=== PATIENT | female | born 1980 | race Caucasian/White ===

== ENCOUNTER → 2016-06-14 | Outpatient (CLI) | payer BC ==
[2016-06-14 10:56] LABS: CH 30.1; CHCM 33.1; HCT 44.5 % (34.0-46.0); HDW 2.32; HGB 15.2 gm/dL (11.4-16.0); MCH 31.2 pg (25.0-35.0); MCHC 34.3 g/dL (31.0-37.0); MCV 91.1 fL (80.0-100.0); Mean Platelet Volume 7.3; RBC 4.88 m/uL (3.80-5.40); RDW 12.5 % (11.5-15.5); WBC 5.7 k/uL (3.8-10.6)
[2016-06-14 11:29] LABS: ALT 33 U/L (9-52); AST 18 U/L (14-36); Alkaline Phosphatase 74 U/L (38-126); Anion Gap 13 mmol/L; Blood Urea Nitrogen 11 mg/dL (7-17); Calcium 9.8 mg/dL (8.4-10.2); Carbon Dioxide 26 mmol/L (22-30); Chloride 106 mmol/L (98-107); Glucose 96 mg/dL (74-99); Non-African American GFR(MDRD) >60 (>60 ml/min/1.73 sqM); Potassium 4.3 mmol/L (3.5-5.1); Sodium 145 mmol/L (137-145); Total Bilirubin 0.4 mg/dL (0.2-1.3); Total Protein 7.6 g/dL (6.3-8.2)
[2016-06-14 11:36] LABS: Follicle Stimulating Hormone 4.8 mIU/mL; Prolactin 8.6 ng/mL (3.0-18.6)
[2016-06-14 12:09] LABS: Vitamin B12 722 pg/mL (239-931)
== END | disposition home or self-care (01) ==
LOC: LABWHC1 10:09
PROVIDERS: ATTEND Internal Medicine Endocrinology, Diabetes & Metabolism
DX: E06.3 Autoimmune thyroiditis (principal); R53.83 Other fatigue
CPT/HCPCS: 36415; 80053; 82533; 82607; 83001; 84146; 84439; 84443; 84480; 85027

== ENCOUNTER → 2016-07-26 | Outpatient (CLI) | payer BC ==
--- NOTE | 2016-07-26 17:36 | WWHP ---
DATE OF SERVICE: 07/26/2016 CHIEF COMPLAINT: Patient is here for her routine gynecologic exam. HPI: This is a 36-year-old G1, P1 with an LMP of 07/10/2016. Her is status post vasectomy. She is without gynecologic complaints. Her periods are generally regular every month. She states about every 6 months her periods can shift by a few days. PAST MEDICAL HISTORY: Unremarkable. MEDICATIONS: 1. Omeprazole 20 mg p.r.n. 2. Motrin jpln-uwh-lmdoisr p.r.n. for menstrual cramps. ALLERGIES TO SULFA WHICH CAUSED TACHYCARDIA. PAST SURGICAL HISTORY: Laparoscopic appendectomy 2015, wisdom teeth removed in the past. Laparoscopic cholecystectomy in 2016. Past OB history: One vaginal delivery by myself in 2006. Past INFORMATICIST history: She was told she had endometriosis at the time of her laparoscopic appendectomy. She states she does have some cramping about 2 days per period. This is usually relieved with jpjb-krs-mxcojga Motrin. She has no history of STDs. SOCIAL HISTORY: She denies tobacco and drug use and has about 2 to 3 alcoholic drinks per month. She has been since 2001. 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 FAMILY HISTORY: Mother and grandmother have heart disease. She also has a grandmother with diabetes. She denies family history of cancer. REVIEW OF SYSTEMS: She has lost about 10 pounds at the time of her cholecystectomy. She denies respiratory, cardiac, or GI problems. PHYSICAL EXAM: Blood pressure 111/79. Height 5 feet 7 inches. Weight 156 pounds. Temperature 97.6, pulse 75. This a well-developed, well-nourished white female who is alert and oriented x3 in no acute distress. HEENT is within normal limits. NECK: Supple without mass or thyromegaly. CHEST AND LUNGS: Clear to auscultation. HEART: Regular rate and rhythm. Breasts are without mass or tenderness. There is a slight linear nipple inversion of the left nipple. She states this has been this way throughout her life. Axillary exam is negative for adenopathy. BACK: Negative for CVA tenderness. ABDOMEN: There are 3 right upper quadrant and one periumbilical small laparoscopic incisions that are intact. There is mild ecchymosis noted. Steri-Strips are still in place and she declined having these removed by me. These were from her cholecystectomy 2 weeks ago. ABDOMEN: Soft and nontender and nondistended. There are no palpable masses. PELVIC EXAM: Normal external genitalia. Cervix and is multiparous and slightly friable upon doing the Pap smear. Vagina appears normal and there is no evidence of prolapse. There is no cervical motion tenderness. The uterus is slightly retroverted, nongravid size and nontender. There are no palpable adnexal masses or tenderness. Rectal exam is negative for mass or tenderness. EXTREMITIES: Nontender. IMPRESSION: A 36-year-old female gynecologically healthy female whose is status post vasectomy. PLAN: 1. Pap smear was performed. 2. Self-breast examination was discussed. 3. Mammograms will be deferred until age 40. 4. Osteoporosis prevention was discussed. 5. She will return in one year.
--- NOTE | 2016-08-09 12:29 | WWPLE ---
August 09, 2016 RE: Carey Deluna Maxim Dear Dr. Ceballos; I had the pleasure of seeing your patient Carey Deluna in the office on 07/26/2016. As you know, she is a 36-year-old female who presented for her routine gynecologic exam. Her gynecologic exam was unremarkable. Her Pap smear came back slightly abnormal showing ASCUS. Reflex high risk HPV testing was negative. With this combination of test results, nothing further is needed at this time; however, I would recommend that she have her Pap smear repeated in one year. She states she will be seeing me for this. Thank you for allowing me to participate in the care of your patient. Please do not hesitate to call if you have any questions. Sincerely, Shelli Navarro. SARINA
== END ==
LOC: WWCWWP 07:57
PROVIDERS: ATTEND Obstetrics & Gynecology

== ENCOUNTER → 2017-08-29 | Outpatient (CLI) | payer BC ==
[2017-08-29 11:36] VITALS: BP 116/79; PULSE 94; TEMP 97.6; BMI 26.1
--- NOTE | 2017-08-29 12:16 | P.HPOB ---
History of Present Illness H&P Date: 08/29/17 Chief Complaint: Patient is here for routine gynecologic exam. This is a 37-year-old with an LMP of 08/08/2017. Her 's status post vasectomy. She states her menses are regular every month. They typically last 5 to 7 days. She states that an the 3rd and 4th day she has heavier flow with clots and significant cramping. The clots can be about 1 inch in size. She has to change your protection about every 1 hour during the heady days. She is interested in trying something non-hormonal and nonsurgical for this. Review of Systems She has gained about 6 pounds over the last year. She denies respiratory, cardiac, or G.I. problems. Past Medical History Past Medical History: No Reported History Additional Past Medical History / Comment(s): Endometriosis History of Any Multi-Drug Resistant Organisms: None Reported Past Surgical History: Appendectomy Additional Past Surgical History / Comment(s): wisdom teeth x4, laparoscopic cholecystectomy with endometriosis noted in 2016 and laparoscopic appendectomy 2015. Past Anesthesia/Blood Transfusion Reactions: Family Hisory of Malignant Hyperthermia, Motion Sickness Past Psychological History: No Psychological Hx Reported Smoking Status: Never smoker Past Alcohol Use History: Occasional Past Drug Use History: None Reported - Past Family History Mother Family Medical History: No Reported History Medications and Allergies Home Medications Medication Instructions Recorded Confirmed Type Ferrous Sulfate [Feosol] 325 mg PO DAILY PRN 04/14/16 04/20/16 History Famotidine [Pepcid] 20 mg PO DAILY PRN 04/19/16 04/20/16 History Allergies Allergy/AdvReac Type Severity Reaction Status Date / Time Sulfa (Sulfonamide AdvReac Rapid Verified 04/20/16 11:51 Antibiotics) Heart Rate Exam - Vital Signs Vital signs: Vital Signs Temp Pulse BP 08/29/17 11:27 97.6 F 94 116/79 Intake and Output 08/28/17 08/29/17 08/29/17 22:59 06:59 14:59 Other: Weight 73.482 kg Height 5'6" BMI 26. This is a well-developed well-nourished white female who is alert and oriented times 3 in no acute distress. HEENT: Within normal limits. NECK: Supple without mass or thyromegaly. CHEST AND LUNGS: Clear to auscultation. HEART: Regular rate and rhythm. BREASTS: Are without mass or discharge. AXILLARY EXAM: Negative for adenopathy. BACK: Negative for CVA tenderness. ABDOMEN: Soft, nontender, without palpable masses. PELVIC EXAM: Normal external genitalia. Cervix and vagina appear normal. There is no unusual discharge. There is no evidence of prolapse. The uterus is midposition, nongravid size and nontender. There are no palpable adnexal masses or tenderness. RECTAL EXAM: negative for mass or tenderness and is negative for occult blood. EXTREMITIES: Nontender. IMPRESSION: 1. This is a 37 year old female with normal gynecologic exam whose status post vasectomy. 2. Mild dysmenorrhea and hypermenorrhea on days 3 and 4 of her menses. There are no significant physical findings at this time. 3. History of endometriosis found on laparoscopic cholecystectomy in 2017. 4. History of ASCUS Pap smear with negative high risk HPV on 07/26/2016. PLAN: 1. Pap smear was deferred. With the 07/26/2016 results, we will plan on repeating the Pap smear with HPV testing in one to 2 years. 2. Self breast examination was discussed. 3. Trial of meclofenamate sodium 100 mg TID PRN for heavy menstrual flow or menstrual pain up to 6 days per cycle. Any prescription will be sent to [facility] on . She will return in one year and PRN.
== END | disposition home or self-care (01) ==
LOC: WWCWWP 11:24
PROVIDERS: ATTEND Obstetrics & Gynecology
DX: Z53.9 Procedure and treatment not carried out, unspecified reason (principal)

== ENCOUNTER → 2019-01-15 | Outpatient (CLI) | payer BC ==
[2019-01-15 16:09] VITALS: BP 121/82; PULSE 84; RESP 16; TEMP 98.7; BMI 28.4
--- NOTE | 2019-01-15 16:50 | P.HPOB ---
History of Present Illness H&P Date: 01/15/19 Chief Complaint: The patient is here for her routine gynecologic exam. This is a 38-year-old with an LMP of 12/21/2018. The patient continues to use ghfh-gkt-lrlhwht ibuprofen 400 mg Q day PRN for menstrual cramps. She typically uses this about 2 days per cycle. The 1st day of her cycle can also be heavier flow. She did try meclofenamate last year, but noticed the same results with vmwg-mlo-vwzubov ibuprofen so she discontinued the meclofenamate. She states her menstrual periods are controlled with strk-jmf-bufszvi Motrin. She is otherwise without complaints. Her is status post vasectomy. Review of Systems The patient has gained 13 pounds over the last year. She denies respiratory, cardiac, or G.I. problems. 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 Hx Endometriosis. History of Any Multi-Drug Resistant Organisms: None Reported Past Surgical History: Appendectomy Additional Past Surgical History / Comment(s): wisdom teeth x4, laparoscopic cholecystectomy with endometriosis noted in 2016 and laparoscopic appendectomy 2015. Past Anesthesia/Blood Transfusion Reactions: Family Hisory of Malignant Hyperthermia, Motion Sickness Past Psychological History: No Psychological Hx Reported Smoking Status: Never smoker Past Alcohol Use History: Occasional (5 per month) Past Drug Use History: None Reported Additional History: She has been since 2001. She works at [employer] in the [employer] department. She enjoys camping. - Past Family History Mother Family Medical History: No Reported History Medications and Allergies Home Medications Medication Instructions Recorded Confirmed Type Famotidine [Pepcid] 20 mg PO DAILY PRN 04/19/16 01/15/19 History Ibuprofen [Motrin] 400 mg PO DAILY PRN 01/15/19 01/15/19 History Allergies Allergy/AdvReac Type Severity Reaction Status Date / Time Sulfa (Sulfonamide AdvReac Rapid Verified 01/15/19 16:12 Antibiotics) Heart Rate Exam Vital Signs Temp Pulse Resp BP Pulse Ox 01/15/19 16:02 98.7 F 84 16 121/82 98 Intake and Output 01/15/19 01/15/19 01/15/19 06:59 14:59 22:59 Other: Weight 79.832 kg Height 5'6", weight 176 pounds, BMI 28.4. This is a well-developed well-nourished white female who is alert and oriented times 3 in no acute distress. HEENT: Within normal limits. NECK: Supple without mass or thyromegaly. CHEST AND LUNGS: Clear to auscultation. HEART: Regular rate and rhythm. BREASTS: Are without mass or discharge. AXILLARY EXAM: Negative for adenopathy. BACK: Negative for CVA tenderness. ABDOMEN: Soft, nontender, without palpable masses. PELVIC EXAM: Normal external genitalia. Cervix and vagina appear normal. There is no unusual discharge. There is no evidence of prolapse. The uterus is midposition, nongravid size and nontender. There are no palpable adnexal masses or tenderness. RECTAL EXAM: negative for mass or tenderness. EXTREMITIES: Nontender. IMPRESSION: 1. 38-year-old female whose is status post vasectomy, with normal gynecologic exam. 2. Mild dysmenorrhea controlled with djsl-edv-rekhzfc ibuprofen 400mg daily PRN. 3. History of endometriosis with fairly minimal symptoms. 4. Previous ascus Pap smear with negative high-risk HPV testing on 07/26/2016. PLAN: 1. Pap smear co-test was performed. 2. Self breast awareness was discussed with the patient. 3. Osteoporosis prevention was discussed. I have stressed the importance of adequate calcium, vitamin D and regular exercise. Recommended amounts of calcium and vitamin D were also discussed. 4. The HPV vaccination for her daughter was discussed. She understands that this is available for girls her age. 5. She was advised to return in one year for her annual well woman exam.
== END | disposition home or self-care (01) ==
LOC: WWCWWP 15:59
PROVIDERS: ATTEND Obstetrics & Gynecology
DX: Z53.9 Procedure and treatment not carried out, unspecified reason (principal)

== ENCOUNTER → 2023-01-17 | Outpatient (CLI) | payer BC ==
[2023-01-17 10:58] VITALS: BP 133/93; PULSE 81; RESP 16; TEMP 98.4
--- NOTE | 2023-01-17 11:52 | P.HPOB ---
History of Present Illness H&P Date: 01/17/23 Chief Complaint: The patient is here for her routine gynecologic exam. This is a 42-year-old with an LMP of 01/05/2023. Her is status post vasectomy. She has a history of endometriosis. In the past her discomfort with menstrual periods was controlled with cwgj-tik-rlficjt ibuprofen. She states her periods seem to be gradually getting worse and are heavier and more crampy than in the past. Menstrual periods are regular every month lasting 5-7 days with 2 days of heavier flow and worse cramps. She had an abnormal Pap smear showing ASCUS with negative high-risk HPV testing on 07/26/2016. Her next Pap smear on 01/15/2019 was a negative cotest. Review of Systems She has gained about 4 pounds over the past 4 years. She denies respiratory, cardiac, or GI problems. 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 Hx Endometriosis. History of Any Multi-Drug Resistant Organisms: None Reported Past Surgical History: Appendectomy Additional Past Surgical History / Comment(s): wisdom teeth x4, laparoscopic cholecystectomy with endometriosis noted in 2016 and laparoscopic appendectomy 2015. Past Anesthesia/Blood Transfusion Reactions: Family Hisory of Malignant Hyperthermia, Motion Sickness Past Psychological History: No Psychological Hx Reported Smoking Status: Never smoker Past Alcohol Use History: Occasional (5 per month.) Past Drug Use History: None Reported Additional History: She has been since 2001. She works at [employer] in the [employer] department and part of the time she works from home. She enjoys camping. - Past Family History Mother Family Medical History: No Reported History Medications and Allergies Home Medications Medication Instructions Recorded Confirmed Type No Known Home Medications 01/17/23 01/17/23 History Allergies Allergy/AdvReac Type Severity Reaction Status Date / Time Sulfa (Sulfonamide AdvReac Rapid Verified 01/17/23 10:52 Antibiotics) Heart Rate Exam Vital Signs Temp Pulse Resp BP Pulse Ox 01/17/23 10:52 98.4 F 81 16 133/93 100 Intake and Output 01/16/23 01/17/23 01/17/23 22:59 06:59 14:59 Other: Weight 81.647 kg Height 5 feet 6 inches, weight 180 pounds, BMI 29.1. This is a well-developed well-nourished white female who is alert and oriented times 3 in no acute distress. HEENT: Within normal limits. NECK: Supple without mass or thyromegaly. CHEST AND LUNGS: Clear to auscultation. HEART: Regular rate and rhythm. BREASTS: Are without mass or discharge. AXILLARY EXAM: Negative for adenopathy. BACK: Negative for CVA tenderness. ABDOMEN: Soft, nontender, without palpable masses. PELVIC EXAM: Normal external genitalia. Cervix and vagina appear normal. The cervix is slightly friable upon doing the Pap smear. There is no unusual discharge. There is no evidence of prolapse. The uterus is midposition, a pproximately 10-12 weeks size, and nontender. There are no palpable adnexal masses or tenderness. RECTAL EXAM: negative for mass or tenderness and is negative for occult blood. EXTREMITIES: Nontender. IMPRESSION: 1. 42-year-old female whose is status post vasectomy with mild uterine enlargement on exam today. Differential diagnosis will include a normal variant, as well as uterine fibroids. 2. Worsening hypermenorrhea and dysmenorrhea. 3. History of endometriosis which may contribute to #2. 4. History of ASCUS Pap smear with negative high-risk HPV testing in 2017, followed by a negative Pap smear cotest on 01/15/2019. PLAN: 1. Pap smear cotest was performed. 2. Self breast awareness was discussed with the patient. We have also discussed symptoms associated with inflammatory breast cancer. 3. Baseline Screening mammogram was recommended and the order slip was given to the patient for this. She was scheduled to do this on 01/18/2023. 4. Have recommended a pelvic ultrasound to further evaluate the mild uterine enlargement as well as the hypermenorrhea and dysmenorrhea. 5. Trial of meclofenamate sodium 100 mg by mouth 3 times a day as needed for heavy menstrual flow up to 6 days per cycle. The electronic prescription will be sent to [facility] pharmacy on . 6. The patient will keep a menstrual calendar. If she is not having significant improvement with the meclofenamate sodium, we can consider other options including a Mirena IUD as well as endometrial ablation. These were discussed with the patient. 7.Osteoporosis prevention was discussed. I have stressed the importance of adequate calcium, vitamin D and regular exercise. Recommended amounts of calcium and vitamin D were also discussed. 8. She was advised to return in one year for her annual well woman exam and as needed.
== END ==
LOC: WWCWWP 10:41
PROVIDERS: ATTEND Obstetrics & Gynecology
DX: Z01.419 Encounter for gynecological examination (general) (routine) without abnormal findings (principal); D25.9 Leiomyoma of uterus, unspecified; N92.0 Excessive and frequent menstruation with regular cycle; N94.6 Dysmenorrhea, unspecified; Z12.31 Encounter for screening mammogram for malignant neoplasm of breast; Z88.1 Allergy status to other antibiotic agents; Z88.2 Allergy status to sulfonamides

== ENCOUNTER → 2023-01-18 | Outpatient (CLI) | payer BC ==
--- NOTE | 2023-01-19 17:43 | MM ---
Reason for Exam: Screening (asymptomatic). Patient History: Menarche at age 12. First Full-Term at age 26. Premenopausal. Last menstrual period: 01/05/2023 Risk Values: Concepcion 5 year model risk: 0.7%. NCI Lifetime model risk: 10.9%. Tissue Density: The breast tissue is extremely dense which could obscure a lesion on mammography. Findings: Analyzed By CAD. Pattern appears symmetrical. Some benign calcifications within the left breast. Some coarse calcification is seen in the upper left breast in the mediolateral oblique view. No suspicious groups of microcalcifications, spiculated or lobular masses, architectural distortion or other secondary signs of malignancy are mammographically apparent. Overall Assessment: Benign, BI-RAD 2 Management: Screening Mammogram of both breasts in 1 year. A negative mammogram report should not preclude additional follow up of suspicious palpable abnormalities. Patient should continue monthly self breast exam. A clinical breast exam by your physician is recommended on an annual basis and results should be correlated with mammographic findings. Electronically signed and approved by: Donis Cameron D.O. Radiologis
== END | disposition home or self-care (01) ==
LOC: RADMAMWWP 15:14
PROVIDERS: ATTEND Obstetrics & Gynecology
DX: Z12.31 Encounter for screening mammogram for malignant neoplasm of breast (principal)
CPT/HCPCS: 77063; 77067

== ENCOUNTER → 2023-02-21 | Outpatient (CLI) | payer BC ==
--- NOTE | 2023-02-21 15:56 | US ---
EXAMINATION TYPE: US pelvic complete DATE OF EXAM: 02/21/2023 COMPARISON: CT & US 2015 CLINICAL INDICATION: Female, 42 years old with history of R68.89 OTHER GENERAL SYMPTOMS AND SIGNS; James wong states her doctor felt a fibroid on a recent exam TECHNIQUE: . Transabdominal sonographic images of the pelvis were acquired. Date of LMP: 01/31/2023 EXAM MEASUREMENTS: Uterus: 13.3 x 6.2 x 8.2 cm Endometrial Stripe: 1.1 cm Right Ovary: 2.7 x 1.7 x 2.1 cm Left Ovary: 3.7 x 2.2 x 2.7 cm 1. Uterus: anteverted, enlarged, and with heterogeneous myometrium with an anterior left-sided 5.7 x 4.5 x 5.0cm fibroid having slight mass effect on the underlying endometrium. Smaller 1.3cm hypoechoi c area seen posterior myometrium at the level of the lower uterine segment 2. Endometrium: appears wnl 3. Right Ovary: wnl 4. Left Ovary: wnl 5. Bilateral Adnexa: wnl 6. Posterior cul-de-sac: wnl IMPRESSION: 1. Bulky fibroid uterus. Dominant 5.7 cm left anterior uterine fibroid is primarily intramural but ma y have a submucosal component. 2. Smaller posterior lower uterine segment fibroid measuring 1.3 cm. 3. Endometrial stripe measuring 1.1 cm thick should correspond to the secretory phase of menstrual cy kathy.
== END | disposition home or self-care (01) ==
LOC: RADUSWWP 08:58
PROVIDERS: ATTEND Obstetrics & Gynecology
DX: D25.1 Intramural leiomyoma of uterus (principal); R68.89 Other general symptoms and signs
CPT/HCPCS: 76856

== ENCOUNTER → 2023-06-20 | Outpatient (CLI) | payer BC ==
--- NOTE | 2023-06-20 13:28 | P.PN ---
Progress Note - Text Progress Note Date: 06/20/23 The patient has called and states she has taken the diclofenac for her hypermenorrhea and dysmenorrhea without significant improvement. She states it did not seem to help a more than lnke-mgn-mpcghvu ibuprofen. She would like to speak with somebody about other possible options including hysterectomy. Impression: Hypermenorrhea, dysmenorrhea, and fibroid uterus not improved with prescription NSAID medications. Plan: We have discussed various options including medical treatment with oral contraceptives as well as a GnRH agonist. We've also discussed surgical options such as endometrial ablation and hysterectomy. After discussing possible pros and cons, she is interested in having a hysterectomy. She will be referred to Dr. Shin for further evaluation and treatment.
== END ==
LOC: WWCWWP 12:29
PROVIDERS: ATTEND Obstetrics & Gynecology
DX: N92.0 Excessive and frequent menstruation with regular cycle (principal); D25.9 Leiomyoma of uterus, unspecified; N94.6 Dysmenorrhea, unspecified; Z88.2 Allergy status to sulfonamides

== ENCOUNTER → 2023-10-05 | Outpatient (CLI) | payer BC ==
[2023-10-05 16:24] LABS: Basophils # (A) 0.06 X 10*3/uL (0.00-0.10); Basophils % (A) 0.9 %; Eosinophils # (A) 0.07 X 10*3/uL (0.04-0.35); Eosinophils % (A) 1.1 %; HCT 40.1 % (37.2-46.3); HGB 12.2 g/dL (12.0-15.0); Lymphocytes # (A) 3.06 X 10*3/uL (0.90-5.00); Lymphocytes % (A) 46.2 %; MCH 25.2 pg (27.0-32.0); MCHC 30.4 g/dL (32.0-37.0); MCV 82.7 FL (80.0-97.0); Mean Platelet Volume 11.2 FL (9.5-12.2); Monocytes # (A) 0.51 X 10*3/uL (0.20-1.00); Monocytes % (A) 7.7 %; NRBC Per 100 WBC 0 X 10*3/uL (0.00-0.01); Neutrophils # (A) 2.91 X 10*3/uL (1.80-7.70); Neutrophils % (A) 43.8 %; Platelet Count 339 X 10*3/uL (140-440); RBC 4.85 X 10*6/uL (4.10-5.20); RDW 16.7 % (11.5-14.5); WBC 6.63 X 10*3/uL (4.50-10.00)
== END | disposition home or self-care (01) ==
LOC: LABPAT 12:17
PROVIDERS: ATTEND Obstetrics & Gynecology
DX: Z01.812 Encounter for preprocedural laboratory examination (principal); N92.0 Excessive and frequent menstruation with regular cycle
CPT/HCPCS: 36415; 85025